=== PATIENT | female | born 1970 | race African-American/Black ===

== ENCOUNTER 2018-12-31 11:52 | Emergency (ER) | payer OTHER ==
[2018-12-31 12:19] VITALS: PULSE 88; TEMP 97.8; BMI 34.5
[2018-12-31] MEDS ORDERED: ACETAMINOPHEN 500 MG TABLET (FP) PO ONE (12:29)
[2018-12-31] MEDS ORDERED: ACETAMINOPHEN 500 MG TABLET (FP) ONE (12:31)
--- NOTE | 2018-12-31 12:37 | PDOC ---
History of Present Illness - General Chief Complaint: Injury Stated Complaint: RT FINGER INJURY Time Seen by Provider: 12/31/18 12:25 History Source: Patient - History of Present Illness Initial Comments: 12/31/18 12:37 HISTORY OF PRESENT ILLNESS: This is a 48-year-old woman past medical history of asthma presents to the emergency department for evaluation of right index and little finger pain status post trip on 12/30. Patient reports she walked into her house when her [place] Terrier Isa under her feet causing her to lose her balance to avoid stepping on the dog. Patient fell forward striking her fingers into the wall. Patient reports increased pain overnight. No recent travel or sick contacts. PAST MEDICAL HISTORY: see HPI SURGICAL HISTORY: Denies ALLERGIES: NSAIDs REVIEW OF SYSTEMS General/Constitutional: Denies fever or chills. Denies weakness, weight change. HEENT: Denies change in vision. Denies ear pain or discharge. Denies sore throat. Cardiovascular: Denies chest pain or shortness of breath. Respiratory: Denies cough, wheezing, or hemoptysis. Gastrointestinal: Denies nausea, vomiting, diarrhea or constipation. Denies rectal bleeding. Genitourinary: Denies dysuria, frequency, or change in urination. Musculoskeletal: see HPI Skin and breasts: Denies rash or easy bruising. Neurologic: Denies headache, vertigo, loss of consciousness, or loss of sensation. Psychiatric: Denies depression or anxiety. Endocrine: Denies increased thirst. Denies abnormal weight change. Hematologic/Lymphatic: Denies anemia, easy bleeding, or history of blood clots. Allergic/Immunologic: Denies hives or skin allergy. Denies latex allergy. PHYSICAL EXAM General Appearance: Well-appearing, appropriately dressed. No apparent distress , no intoxication. HEENT: EOMI, PERRLA, normal ENT inspection, normal voice, TMs normal, pharynx normal. No conjunctival pallor. No photophobia, scleral icterus. Neck: Supple. Trachea midline. No tenderness, rigidity, carotid bruit, stridor , lymphadenopathy, or thyromegaly. Respiratory/Chest: Lungs CTAB. No shortness of breath, chest tenderness, respiratory distress, accessory muscle use. No crackles, rales, rhonchi, stridor , wheezing, dullness Cardiovascular: RRR. S1, S2. No JVD, murmur, bradycardia, tachycardia. Vascular Pulses: Dorsalis-Pedis (R): 2+, Dorsalis-Pedis (L): 2+ Gastrointestinal/Abdominal: Normal bowel sounds. Abdomen soft, non-distended. No tenderness or rebound tenderness. No organomegaly, pulsatile mass, guarding, hernia, hepatomegaly, splenomegaly. Lymphatic: No adenopathy, tenderness. Musculoskeletal/Extremities: FROM of all extremities, normal capillary refill. Tenderness to palpation over the middle and distal phalanx of the right index finger and middle phalanx of right little finger. Swelling present over the PIP of the right index finger. Integumentary: Appropriate color, dry, warm. No cyanosis, erythema, jaundice or rash Neurologic: vault teller II-XII intact. Fully oriented, alert. Appropriate mood/affect. Motor strength 5/5. No appreciable EOM palsy, facial droop or sensory deficit. Past History - Past Medical History Allergies/Adverse Reactions: Allergies Allergy/AdvReac Type Severity Reaction Status Date / Time naproxen Allergy Severe Swelling Verified 12/31/18 12:27 ibuprofen [From Motrin] AdvReac "STOMACH Verified 12/31/18 12:27 UPSET" Home Medications: Ambulatory Orders NK [No Known Home Medication] 12/31/18 Anemia: No Asthma: Yes (NO RECENT ATTACK) Cancer: No Cardiac Disorders: No CVA: No COPD: No CHF: No Dementia: No Diabetes: No GI Disorders: No Disorders: No HTN: No Hypercholesterolemia: No Liver Disease: No Seizures: No Thyroid Disease: No - Surgical History Abdominal Surgery: No Appendectomy: No Cardiac Surgery: No Cholecystectomy: No Lung Surgery: Yes (RIGHT LUNG-HAD CHEST TUBE) Neurologic Surgery: No Orthopedic Surgery: Yes (LEFT KNEE ARTHROSCOPY) - Immunization History Immunization Up to Date: Yes - Suicide/Smoking/Psychosocial Hx Smoking History: Never smoked Hx Alcohol Use: No Drug/Substance Use Hx: No Substance Use Type: None Hx Substance Use Treatment: No *Physical Exam - Vital Signs Last Vital Signs Temp Pulse Resp BP Pulse Ox 97.8 F 88 18 125/8 L 94 L 12/31/18 12:17 12/31/18 12:17 12/31/18 12:17 12/31/18 12:17 12/31/18 12:17 ED Treatment Course - RADIOLOGY Radiology Studies Ordered: Category Date Time Status FINGER(S) RIGHT [RAD] Stat Radiology 12/31/18 12:29 Ordered Medical Decision Making - Medical Decision Making 12/31/18 12:50 A/P: 48-year-old woman with right index and little finger pain status post axial load injury to the distal ends of finger Full active range of motion against resistance all joints of the right hand Tenderness to palpation over the middle and distal phalanx of the right index finger and middle phalanx of the right little finger Appreciable swelling present over the PIP of the right index finger X-rays Tylenol 1 g orally now Reassess 12/31/18 13:11 X-rays as read by Dr. Wang: There is no sign of an acute fracture, subluxation or bony structure. [place] lytic changes are not seen. There is some loss of bone density. There is no sign of soft tissue air or foreign body. As there is no fracture sony tape the finger and r orthopedist for continued evaluation and follow-up as needed. I discussed the physical exam findings, ancillary test results and final diagnoses with the patient. I answered all of the patient's questions. The patient was satisfied with the care received and felt comfortable with the discharge plan and treatment plan. The patient will call their primary care physician within 24 hours to arrange follow-up and will return to the Emergency Department with any new, persistent or worsening symptoms. *DC/Admit/Observation/Transfer Diagnosis at time of Disposition: Finger pain, right Finger contusion Qualifiers: Encounter type: initial encounter Finger: index finger Damage to nail status: without damage Laterality: right Qualified Code(s): S60.021A - Contusion of right index finger without damage to nail, initial encounter - Discharge Dispostion Disposition: HOME Condition at time of disposition: Stable Decision to Admit order: No - Referrals Referrals: Flakito Worthy MD [Primary Care Provider] - Lee Watkins MD [Staff Physician] - - Patient Instructions Additional Instructions: Keep fingers taped together until evaluated by orthopedist. Take Tylenol as needed for pain. Follow manufacture's instructions for appropriate dosage. Apply ice to hands for no longer than 20 minutes at a time. Keep ice off hands for minimum of 20 minutes before reapplying. You have Been given an referral for an orthopedist. Please call to schedule an appointment if symptoms do not improve within 7 days. Return to emergency room for new or worsening symptoms. - Post Discharge Activity Forms/Work/School Notes: Back to Work
[2018-12-31 13:16] VITALS: BP 113/70
== END 2018-12-31 13:16 | disposition home or self-care (01) ==
LOC: JERFT 11:52
DX: S60.021A Contusion of right index finger without damage to nail, initial encounter (principal); W01.0XXA Fall on same level from slipping, tripping and stumbling without subsequent striking against object, initial encounter; Y93.K1 Activity, walking an animal; Y92.008 Other place in unspecified non-institutional (private) residence as the place of occurrence of the external cause
CPT/HCPCS: 73130-TC-RT-FY; 99281-25

== ENCOUNTER 2021-12-06 23:07 | Emergency (ER) | payer OTHER ==
[2021-12-06 23:21] VITALS: BMI 35.9
[2021-12-07] MEDS ORDERED: EPINEPHrine 1:1,000 1,000 MCG/ML ML IV ONE (00:50)
[2021-12-07] MEDS ORDERED: DEXAMETHASONE SOD PHOSPHATE 10 MG/1 ML VIAL IVPUSH ONE (00:50)
[2021-12-07] MEDS ORDERED: TRANEXAMIC ACID 1000 MG/10 ML VIAL IVPUSH ONE (00:51)
[2021-12-07] MEDS ORDERED: FAMOTIDINE 20 MG/50 ML IVPB 20 MG/50 ML MG IVPB ONE ×2 (00:51→00:57)
[2021-12-07] MEDS ORDERED: EPINEPHrine 1:1,000 1,000 MCG/ML ML SQ ONE (00:55)
[2021-12-07] MEDS ORDERED: EPINEPHrine 1:10,000 (P-F SYR) 1 MG/10 ML DISP.SYRIN ONE (00:56)
[2021-12-07] MEDS ORDERED: TRANEXAMIC ACID 1000 MG/10 ML VIAL ONE (00:58)
[2021-12-07] MEDS ORDERED: DEXAMETHASONE SOD PHOSPHATE 10 MG/1 ML VIAL ONE (01:02)
[2021-12-07] MEDS ORDERED: EPINEPHrine/PF 1 MG/1 ML (1:1,000) AMPULE ONE (01:04)
[2021-12-07] MEDS ORDERED: ACETAMINOPHEN 1000 MG/100 ML BAG IVPB ONE (01:38)
[2021-12-07] MEDS ORDERED: ACETAMINOPHEN INJECTION 100 ML IVPB ONE (01:48)
[2021-12-07 02:52] LABS: BASO % 0.1 % (0-2.0); HEMATOCRIT 36.6 % (32.4-45.2); HEMOGLOBIN 12.5 GM/dL (10.7-15.3); LYMPH % 16.5 % (8-40); MCH 28.4 pg (25.7-33.7); MCHC 34.2 g/dl (32.0-36.0); MEAN CELL VOLUME 82.9 fl (80-96); MEAN PLT VOLUME 7.2 fl (7.5-11.1); MONO % 7.9 % (3.8-10.2); NEUT % 75.5 % (42.8-82.8); PLATELET COUNT 415 10^3/uL (134-434); RBC 4.41 M/mm3 (3.60-5.2); RDW 15.3 % (11.6-15.6); WHITE BLOOD COUNT 14.6 K/mm3 (4.0-10.0)
[2021-12-07 03:07] LABS: INR 1.07 (0.83-1.09); PROTHROMBIN TIME (PATIENT) 12.3 SEC (9.7-13.0)
[2021-12-07 03:10] LABS: ACTIVATED PTT 28.1 SECONDS (25.2-36.5)
[2021-12-07 03:13] VITALS: PULSE 72
[2021-12-07 03:13] LABS: BLOOD UREA NITROGEN 26.2 mg/dL (7-18); CALCIUM 9.2 mg/dL (8.5-10.1)
[2021-12-07 03:16] LABS: CREATININE 0.8 mg/dL (0.55-1.3)
[2021-12-07 03:18] LABS: BILIRUBIN,TOTAL 0.2 mg/dL (0.2-1); TOT PROT 6.5 g/dl (6.4-8.2)
[2021-12-07 03:19] VITALS: BP 165/70; TEMP 98
[2021-12-09 00:06] LABS: SARS-CoV-2 NAA Not Detected (Not Detected)
== END 2021-12-07 03:24 | disposition short-term general hospital (02) ==
LOC: JER 23:07
PROC: 3E0333Z Introduction of Anti-inflammatory into Peripheral Vein, Percutaneous Approach (ICD-10-PCS; principal; 2021-12-06)
PROC: 3E033GC Introduction of Other Therapeutic Substance into Peripheral Vein, Percutaneous Approach (ICD-10-PCS; 2021-12-06)
PROC: 3E033GC Introduction of Other Therapeutic Substance into Peripheral Vein, Percutaneous Approach (ICD-10-PCS; 2021-12-06)
PROC: 3E033GC Introduction of Other Therapeutic Substance into Peripheral Vein, Percutaneous Approach (ICD-10-PCS; 2021-12-06)
PROC: 3E033GC Introduction of Other Therapeutic Substance into Peripheral Vein, Percutaneous Approach (ICD-10-PCS; 2021-12-06)
DX: T78.3XXA Angioneurotic edema, initial encounter (principal)
CPT/HCPCS: 36415; 80053; 84703; 85025; 85610; 85730; 86850; 86900; 86901; 99284-25; C9803-CS; J1100; U0003; U0005

== ENCOUNTER 2022-03-01 06:55 | Emergency (ER) | payer OTHER ==
[2022-03-01 07:18] VITALS: BP 105/64; PULSE 83; TEMP 98.3; BMI 34.0
[2022-03-01] MEDS ORDERED: SULFAMETHOXAZOLE/TRIMETHOPRIM 800MG/160MG D.S. TABLET PO ONE (08:33)
[2022-03-01] MEDS ORDERED: ACETAMINOPHEN 325 MG TABLET (FP) PO ONE (08:41)
[2022-03-01] MEDS ORDERED: SULFAMETHOXAZOLE/TRIMETHOPRIM 800MG/160MG D.S. TABLET ONE (08:45)
[2022-03-01] MEDS ORDERED: ACETAMINOPHEN 325 MG TABLET (FP) ONE (08:46)
[2022-03-01] MEDS ORDERED: BACITRACIN 15 GM TUBE TOPICAL OINTMENT ONE (10:46)
[2022-03-02] MEDS ORDERED: BACITRACIN 15 GM TUBE TOPICAL OINTMENT TP SCH (10:00)
== END 2022-03-01 11:40 | disposition home or self-care (01) ==
LOC: JER 06:55
DX: S41.101A Unspecified open wound of right upper arm, initial encounter (principal); M25.562 Pain in left knee; V89.2XXA Person injured in unspecified motor-vehicle accident, traffic, initial encounter
CPT/HCPCS: 0241U-QW; 73562-TC-LT-FY; 99284-25

== ENCOUNTER 2023-06-07 14:56 | Inpatient (IN) | payer OTHER ==
[2023-06-07] MEDS ORDERED: ALBUTEROL SO4 2.5/IPRATROPIUM 0.5 INH SOL 3 ML VIAL.NEB. NEB ONE (15:08)
[2023-06-07] MEDS ORDERED: methylPREDNISolone NA SUCC 125 MG/2 ML VIAL IVPB ONE (15:38)
[2023-06-07] MEDS ORDERED: ACETAMINOPHEN 1000 MG/100 ML BAG IVPB ONE (15:42)
[2023-06-07 15:53] LABS: BASO % 0.3 % (0-2.0); EOS % 1.9 % (0-4.5); HEMATOCRIT 31.9 % (32.4-45.2); HEMOGLOBIN 10.6 GM/dL (10.7-15.3); LYMPH % 12.6 % (8-40); MCH 25.8 pg (25.7-33.7); MCHC 33.1 g/dl (32.0-36.0); MEAN CELL VOLUME 77.7 fl (80-96); MEAN PLT VOLUME 7.3 fl (7.5-11.1); MONO % 6.2 % (3.8-10.2); PLATELET COUNT 422 10^3/uL (134-434); WHITE BLOOD COUNT 15.1 K/mm3 (4.0-10.0)
[2023-06-07 16:06] LABS: POTASSIUM 3.6 mmol/L (3.5-5.1)
[2023-06-07 16:09] LABS: CALCIUM 8.8 mg/dL (8.5-10.1)
[2023-06-07 16:10] LABS: ALBUMIN 2.8 g/dl (3.4-5.0); BLOOD UREA NITROGEN 8.8 mg/dL (7-18)
[2023-06-07] MEDS ORDERED: methylPREDNISolone NA SUCC 125 MG/2 ML VIAL ONE (16:11)
[2023-06-07] MEDS ORDERED: ACETAMINOPHEN INJECTION 100 ML IVPB ONE (16:11)
[2023-06-07 16:13] LABS: CREATININE 0.7 mg/dL (0.55-1.3)
[2023-06-07 16:14] LABS: BILIRUBIN,TOTAL 0.5 mg/dL (0.2-1); TOT PROT 6.7 g/dl (6.4-8.2)
[2023-06-07 16:16] LABS: VENOUS BASE EXCESS 1.4 mmol/L (-2-2); VENOUS PCO2 45.7 mmHg (38-52); VENOUS PH 7.389 (7.310-7.410)
[2023-06-07] MEDS: ALBUTEROL SO4 2.5/IPRATROPIUM 0.5 INH SOL 3 ML VIAL.NEB. NEB SCH ×3 (16:16→16:31)
[2023-06-07] MEDS ORDERED: SODIUM CHLORIDE 0.9% 500 ML INFUS.BAG IV ONE (16:20)
[2023-06-07] MEDS ORDERED: EPINEPHrine 1:1,000 0.3 MG/0.3 ML SYR IM ONE (16:31)
[2023-06-07] MEDS ORDERED: FAMOTIDINE 20 MG/50 ML IVPB 20 MG/50 ML MG IVPB ONE (16:34)
[2023-06-07] MEDS ORDERED: EPINEPHrine/PF 1 MG/1 ML (1:1,000) AMPULE ONE (16:38)
[2023-06-07] MEDS ORDERED: FAMOTIDINE 10 MG/ML VIAL IVPB ONE (16:47)
[2023-06-07] MEDS ORDERED: CEFTRIAXONE 1,000 MG in DEXTROSE 5%-WATER - 50 ML IVPB ONE (17:12)
[2023-06-07] MEDS ORDERED: AZITHROMYCIN IVPB 500 MG in DEXTROSE 5%-WATER - 250 ML IVPB ONE (17:12)
[2023-06-07] MEDS ORDERED: CEFTRIAXONE 1 GM/50 ML BAG ONE (17:20)
[2023-06-07] MEDS ORDERED: AZITHROMYCIN IVPB 500 MG/250 ML BAG IVPB ONE (17:20)
[2023-06-07] MEDS ORDERED: ALBUTEROL SO4 2.5/IPRATROPIUM 0.5 INH SOL 3 ML VIAL.NEB. NEB SCH (20:00)
[2023-06-07 22:18] VITALS: BMI 34.8
[2023-06-08] MEDS: methylPREDNISolone NA SUCC 40 MG/1 ML VIAL IVPUSH SCH ×2 (03:35→09:05)
[2023-06-08] MEDS: ACETAMINOPHEN 325 MG TABLET (FP) PO PRN ×2 (03:38→16:47)
[2023-06-08 08:47] LABS: BASO % 0.2 % (0-2.0); HEMATOCRIT 31.7 % (32.4-45.2); HEMOGLOBIN 10.8 GM/dL (10.7-15.3); LYMPH % 10.1 % (8-40); MCH 26.4 pg (25.7-33.7); MEAN CELL VOLUME 77.5 fl (80-96); MEAN PLT VOLUME 7.3 fl (7.5-11.1); MONO % 1.9 % (3.8-10.2); NEUT % 87.8 % (42.8-82.8); PLATELET COUNT 421 10^3/uL (134-434); RBC 4.09 M/mm3 (3.60-5.2); RDW 16.9 % (11.6-15.6); WHITE BLOOD COUNT 9.1 K/mm3 (4.0-10.0)
[2023-06-08 09:21] LABS: POTASSIUM 3.9 mmol/L (3.5-5.1)
[2023-06-08 09:23] LABS: ALBUMIN 2.6 g/dl (3.4-5.0); CALCIUM 8.7 mg/dL (8.5-10.1)
[2023-06-08 09:27] LABS: CREATININE 0.7 mg/dL (0.55-1.3)
[2023-06-08 09:28] LABS: BILIRUBIN,TOTAL 0.2 mg/dL (0.2-1); TOT PROT 6.8 g/dl (6.4-8.2)
[2023-06-08] MEDS ORDERED: AZITHROMYCIN IVPB 250 MG in DEXTROSE 5%-WATER - 250 ML IVPB SCH (10:00)
[2023-06-08] MEDS ORDERED: CEFTRIAXONE 1 GM in DEXTROSE 5%-WATER - 50 ML IVPB SCH (10:00)
[2023-06-08] MEDS: PIPERACILLIN/TAZOB 3.375 GM 3.375 GM in DEXTROSE 5%-WATER - 50 ML IVPB SCH ×2 (10:06→16:59)
[2023-06-08] MEDS: ENOXAPARIN NA (PORCINE) 40 MG/0.4 ML DISP.SYRIN SQ SCH (10:06)
[2023-06-08] MEDS: FAMOTIDINE 20 MG TABLET PO SCH (15:07)
[2023-06-08] MEDS: ALBUTEROL SO4 2.5/IPRATROPIUM 0.5 INH SOL 3 ML VIAL.NEB. NEB PRN ×2 (15:44→20:08)
[2023-06-09] MEDS: PIPERACILLIN/TAZOB 3.375 GM 3.375 GM in DEXTROSE 5%-WATER - 50 ML IVPB SCH ×3 (01:09→17:15)
[2023-06-09] MEDS: ALBUTEROL SO4 2.5/IPRATROPIUM 0.5 INH SOL 3 ML VIAL.NEB. NEB PRN ×2 (02:00→08:53)
[2023-06-09] MEDS: ACETAMINOPHEN 325 MG TABLET (FP) PO PRN ×2 (05:12→17:15)
[2023-06-09] MEDS: FAMOTIDINE 20 MG TABLET PO SCH (09:43)
[2023-06-09] MEDS: ENOXAPARIN NA (PORCINE) 40 MG/0.4 ML DISP.SYRIN SQ SCH (09:43)
[2023-06-09 09:54] LABS: BASO % 0.2 % (0-2.0); EOS % 0.3 % (0-4.5); HEMATOCRIT 28.5 % (32.4-45.2); LYMPH % 24.2 % (8-40); MCH 25.1 pg (25.7-33.7); MCHC 31.6 g/dl (32.0-36.0); MEAN CELL VOLUME 79.4 fl (80-96); MEAN PLT VOLUME 7.4 fl (7.5-11.1); MONO % 5.5 % (3.8-10.2); NEUT % 69.8 % (42.8-82.8); PLATELET COUNT 403 10^3/uL (134-434); RBC 3.59 M/mm3 (3.60-5.2); RDW 17.2 % (11.6-15.6)
[2023-06-09 10:15] LABS: CHLORIDE 107 mmol/L (98-107); POTASSIUM 3.4 mmol/L (3.5-5.1); SODIUM 140 mmol/L (136-145)
[2023-06-09 10:18] LABS: CALCIUM 8.3 mg/dL (8.5-10.1)
[2023-06-09 10:20] LABS: ALBUMIN 2.5 g/dl (3.4-5.0); ANION GAP 7 MMOL/L (8-16); BLOOD UREA NITROGEN 18.8 mg/dL (7-18); CO2 26 mmol/L (21-32); GLUCOSE,RANDOM 231 mg/dL (74-106)
[2023-06-09 10:23] LABS: CREATININE 0.9 mg/dL (0.55-1.3); SGOT/AST 11 U/L (15-37); SGPT/ALT 15 U/L (13-61)
[2023-06-09 10:25] LABS: BILIRUBIN,TOTAL < 0.1 mg/dL (0.2-1); TOT PROT 6.1 g/dl (6.4-8.2)
[2023-06-09 10:26] LABS: ALK PHOS 94 U/L (45-117)
[2023-06-09] MEDS ORDERED: ALBUTEROL SO4 2.5/IPRATROPIUM 0.5 INH SOL 3 ML VIAL.NEB. NEB SCH (12:10)
[2023-06-09] MEDS ORDERED: methylPREDNISolone NA SUCC 40 MG/1 ML VIAL IVPUSH SCH (12:15)
[2023-06-09] MEDS ORDERED: ALBUTEROL SO4 2.5/IPRATROPIUM 0.5 INH SOL 3 ML VIAL.NEB. NEB PRN ×2 (13:09→13:13)
[2023-06-09] MEDS ORDERED: POTASSIUM CHLORIDE TABS 20 MEQ TABLET.ER (FP) PO ONE (13:45)
[2023-06-09] MEDS: ALBUTEROL SO4 2.5/IPRATROPIUM 0.5 INH SOL 3 ML VIAL.NEB. NEB SCH ×2 (15:44→20:41)
[2023-06-09] MEDS ORDERED: traMADol HCL 50 MG TABLET PO ONE (21:15)
[2023-06-09] MEDS ORDERED: MELATONIN 5 MG TABLETS PO ONE (22:45)
[2023-06-10] MEDS: PIPERACILLIN/TAZOB 3.375 GM 3.375 GM in DEXTROSE 5%-WATER - 50 ML IVPB SCH ×3 (02:00→18:12)
[2023-06-10] MEDS: ACETAMINOPHEN 325 MG TABLET (FP) PO PRN (06:41)
[2023-06-10] MEDS: ALBUTEROL SO4 2.5/IPRATROPIUM 0.5 INH SOL 3 ML VIAL.NEB. NEB SCH ×5 (08:05→21:03)
[2023-06-10] MEDS: ENOXAPARIN NA (PORCINE) 40 MG/0.4 ML DISP.SYRIN SQ SCH (10:33)
[2023-06-10] MEDS: FAMOTIDINE 20 MG TABLET PO SCH (10:34)
[2023-06-10] MEDS: guaiFENesin/CODEINE 5 ML UNIT-DOSE CUPS PO PRN (20:05)
[2023-06-10 21:39] VITALS: RESP 18
[2023-06-11] MEDS: ZOLPIDEM TARTRATE 5 MG TABLET PO PRN (01:28)
[2023-06-11] MEDS: PIPERACILLIN/TAZOB 3.375 GM 3.375 GM in DEXTROSE 5%-WATER - 50 ML IVPB SCH ×3 (01:32→18:24)
[2023-06-11] MEDS: ALBUTEROL SO4 2.5/IPRATROPIUM 0.5 INH SOL 3 ML VIAL.NEB. NEB SCH ×4 (07:15→19:30)
[2023-06-11] MEDS: FAMOTIDINE 20 MG TABLET PO SCH (10:04)
[2023-06-11] MEDS: guaiFENesin/CODEINE 5 ML UNIT-DOSE CUPS PO PRN ×2 (10:06→20:13)
[2023-06-11] MEDS: ENOXAPARIN NA (PORCINE) 40 MG/0.4 ML DISP.SYRIN SQ SCH (10:06)
[2023-06-11] MEDS: IBUPROFEN 600 MG TABLET (FP) PO PRN (18:43)
[2023-06-12] MEDS: ZOLPIDEM TARTRATE 5 MG TABLET PO PRN (01:06)
[2023-06-12] MEDS: PIPERACILLIN/TAZOB 3.375 GM 3.375 GM in DEXTROSE 5%-WATER - 50 ML IVPB SCH ×3 (01:06→18:09)
[2023-06-12] MEDS: guaiFENesin/CODEINE 5 ML UNIT-DOSE CUPS PO PRN ×2 (06:48→16:52)
[2023-06-12] MEDS: ALBUTEROL SO4 2.5/IPRATROPIUM 0.5 INH SOL 3 ML VIAL.NEB. NEB SCH ×4 (07:48→19:14)
[2023-06-12] MEDS: IBUPROFEN 600 MG TABLET (FP) PO PRN ×2 (09:07→21:49)
[2023-06-12] MEDS: FAMOTIDINE 20 MG TABLET PO SCH (09:07)
[2023-06-12] MEDS: ENOXAPARIN NA (PORCINE) 40 MG/0.4 ML DISP.SYRIN SQ SCH (09:08)
[2023-06-13] MEDS: guaiFENesin/CODEINE 5 ML UNIT-DOSE CUPS PO PRN
[2023-06-13] MEDS: PIPERACILLIN/TAZOB 3.375 GM 3.375 GM in DEXTROSE 5%-WATER - 50 ML IVPB SCH ×2 (01:01→09:43)
[2023-06-13] MEDS: ZOLPIDEM TARTRATE 5 MG TABLET PO PRN (01:01)
[2023-06-13] MEDS: IBUPROFEN 600 MG TABLET (FP) PO PRN (05:30)
[2023-06-13 06:08] VITALS: BP 119/75; PULSE 77; TEMP 97.5
[2023-06-13] MEDS: ALBUTEROL SO4 2.5/IPRATROPIUM 0.5 INH SOL 3 ML VIAL.NEB. NEB SCH ×2 (07:55→11:37)
[2023-06-13 08:34] LABS: POTASSIUM 4.2 mmol/L (3.5-5.1)
[2023-06-13 08:38] LABS: ALBUMIN 2.9 g/dl (3.4-5.0); BLOOD UREA NITROGEN 10.4 mg/dL (7-18)
[2023-06-13 08:39] LABS: BASO % 0.3 % (0-2.0); EOS % 4.5 % (0-4.5); HEMATOCRIT 34.9 % (32.4-45.2); HEMOGLOBIN 11.2 GM/dL (10.7-15.3); LYMPH % 21.3 % (8-40); MCH 25.2 pg (25.7-33.7); MCHC 32.1 g/dl (32.0-36.0); MEAN CELL VOLUME 78.6 fl (80-96); MONO % 4.7 % (3.8-10.2); NEUT % 69.2 % (42.8-82.8); PLATELET COUNT 576 10^3/uL (134-434); RBC 4.44 M/mm3 (3.60-5.2); RDW 16.8 % (11.6-15.6); WHITE BLOOD COUNT 10.7 K/mm3 (4.0-10.0)
[2023-06-13 08:41] LABS: CREATININE 0.8 mg/dL (0.55-1.3)
[2023-06-13 08:42] LABS: BILIRUBIN,TOTAL 0.4 mg/dL (0.2-1); TOT PROT 6.8 g/dl (6.4-8.2)
[2023-06-13] MEDS: FAMOTIDINE 20 MG TABLET PO SCH (09:44)
[2023-06-13] MEDS: ENOXAPARIN NA (PORCINE) 40 MG/0.4 ML DISP.SYRIN SQ SCH (09:44)
== END 2023-06-13 13:45 | disposition home health service (06) | DRG 140 ==
LOC: JER 14:56 → JERBED 17:16 → J7W 21:37
PROVIDERS: ADMIT Internal Medicine; ATTEND Internal Medicine
DX: J44.1 Chronic obstructive pulmonary disease with (acute) exacerbation (principal); J18.9 Pneumonia, unspecified organism; J44.0 Chronic obstructive pulmonary disease with (acute) lower respiratory infection; J90 Pleural effusion, not elsewhere classified; D86.9 Sarcoidosis, unspecified; J45.41 Moderate persistent asthma with (acute) exacerbation; E66.9 Obesity, unspecified; Z68.34 Body mass index [BMI] 34.0-34.9, adult
CPT/HCPCS: 0241U-QW; 36415; 71045-TC-FY; 71250-TC; 80053; 82803; 83605; 84484; 85025; 87040; 87077; 87081; 93005; 93010; 94640; 99285-25; J0171

== ENCOUNTER 2024-06-11 16:29 | Observation (INO) | payer OTHER ==
[2024-06-11 18:33] LABS: BASO % 0.6 % (0-2.0); EOS % 3.4 % (0-4.5); HEMATOCRIT 30.7 % (32.4-45.2); HEMOGLOBIN 9.9 GM/dL (10.7-15.3); LYMPH % 17.8 % (8-40); MCH 25.8 pg (25.7-33.7); MCHC 32.2 g/dl (32.0-36.0); MONO % 4.8 % (3.8-10.2); NEUT % 73.4 % (42.8-82.8); PLATELET COUNT 269 10^3/uL (134-434); RBC 3.84 M/mm3 (3.60-5.2); RDW 17.5 % (11.6-15.6); WHITE BLOOD COUNT 8.1 K/mm3 (4.0-10.0)
[2024-06-11 18:58] LABS: CALCIUM 8.7 mg/dL (8.5-10.1)
[2024-06-11 18:59] LABS: BLOOD UREA NITROGEN 15.7 mg/dL (7-18)
[2024-06-11 19:02] LABS: CREATININE 0.6 mg/dL (0.55-1.3)
[2024-06-11 19:04] LABS: BILIRUBIN,TOTAL 0.2 mg/dL (0.2-1); TOT PROT 5.9 g/dl (6.4-8.2)
[2024-06-12] MEDS ORDERED: ALBUTEROL SO4 HFA INHALER IH ONE (10:01)
[2024-06-12] MEDS ORDERED: ACETAMINOPHEN 500 MG TABLET (FP) ONE (10:02)
[2024-06-12] MEDS: ACETAMINOPHEN 500 MG TABLET (FP) PO ONE (10:06)
[2024-06-12] MEDS: ALBUTEROL SO4 HFA INHALER IH ONE (10:08)
[2024-06-12 14:49] VITALS: BMI 28.5
[2024-06-12] MEDS: KETOROLAC TROMETHAMINE 30 MG/1 ML VIAL IVPUSH PRN (16:48)
[2024-06-12] MEDS ORDERED: ALBUTEROL SO4 0.083% IH SOL 2.5 MG/3 ML VIAL.NEB. NEB ONE (18:51)
[2024-06-12] MEDS: ALBUTEROL SO4 0.083% IH SOL 2.5 MG/3 ML VIAL.NEB. NEB PRN (19:20)
[2024-06-12] MEDS: ACETAMINOPHEN 325 MG TABLET (FP) PO PRN (20:39)
[2024-06-13 07:04] VITALS: RESP 18
[2024-06-13] MEDS: FAMOTIDINE 20 MG TABLET PO SCH (09:44)
[2024-06-13] MEDS: ZOLPIDEM TARTRATE 5 MG TABLET PO PRN (21:59)
[2024-06-13] MEDS: clonazePAM 0.5 MG TABLET PO SCH (21:59)
[2024-06-14] MEDS: ESCITALOPRAM OXALATE 10 MG TABLET PO SCH (10:17)
[2024-06-15 14:36] VITALS: BP 120/74; PULSE 95; TEMP 97.8
== END 2024-06-15 15:42 | disposition home or self-care (01) ==
LOC: JER 16:29 → JERBED 06-12 12:32 → J8W 06-12 13:12
PROVIDERS: ADMIT Internal Medicine; ATTEND Internal Medicine
PROC: 3E0F7GC Introduction of Other Therapeutic Substance into Respiratory Tract, Via Natural or Artificial Opening (ICD-10-PCS; principal; 2024-06-12)
PROC: 3E0333Z Introduction of Anti-inflammatory into Peripheral Vein, Percutaneous Approach (ICD-10-PCS; 2024-06-12)
DX: J45.41 Moderate persistent asthma with (acute) exacerbation (principal); S70.11XA Contusion of right thigh, initial encounter; D86.9 Sarcoidosis, unspecified; Y04.2XXA Assault by strike against or bumped into by another person, initial encounter; Y07.030 Male partner, current, perpetrator of maltreatment and neglect; Y92.89 Other specified places as the place of occurrence of the external cause; X58.XXXA Exposure to other specified factors, initial encounter; Z88.8 Allergy status to other drugs, medicaments and biological substances
CPT/HCPCS: 0241U-QW; 36415; 71045-TC-FY; 72128-TC; 72131-TC; 73706-TC-RT; 80053; 84484; 84703; 85025; 93005; 93010; 94640; 96374; 97116-GP; 97161-GP; 99285-25; G0378; Q9967

== ENCOUNTER 2024-06-30 11:16 | Emergency (ER) | payer OTHER ==
[2024-06-30 11:21] VITALS: RESP 18; BMI 30.8
[2024-06-30] MEDS ORDERED: KETOROLAC TROMETHAMINE 30 MG/1 ML VIAL ONE (12:46)
[2024-06-30] MEDS: SODIUM CHLORIDE 0.9% 500 ML INFUS.BAG IV ONE (12:57)
[2024-06-30] MEDS: KETOROLAC TROMETHAMINE 15 MG/ML VIAL IVPUSH ONE (12:57)
[2024-06-30] MEDS: KETOROLAC TROMETHAMINE 30 MG/1 ML VIAL IM ONE (12:58)
[2024-06-30 13:13] LABS: BASO % 0.4 % (0-2.0); EOS % 1.6 % (0-4.5); HEMATOCRIT 30.4 % (32.4-45.2); HEMOGLOBIN 9.9 GM/dL (10.7-15.3); LYMPH % 17.6 % (8-40); MCH 25.3 pg (25.7-33.7); MCHC 32.4 g/dl (32.0-36.0); MEAN CELL VOLUME 78.1 fl (80-96); MEAN PLT VOLUME 6.5 fl (7.5-11.1); MONO % 4.5 % (3.8-10.2); NEUT % 75.9 % (42.8-82.8); PLATELET COUNT 578 10^3/uL (134-434); RBC 3.89 M/mm3 (3.60-5.2); RDW 16.7 % (11.6-15.6); WHITE BLOOD COUNT 7.9 K/mm3 (4.0-10.0)
[2024-06-30 13:46] LABS: POTASSIUM 4.1 mmol/L (3.5-5.1)
[2024-06-30 13:48] LABS: CALCIUM 9.2 mg/dL (8.5-10.1)
[2024-06-30 13:49] LABS: ALBUMIN 2.6 g/dl (3.4-5.0); BLOOD UREA NITROGEN 22.9 mg/dL (7-18)
[2024-06-30 13:52] LABS: CREATININE 0.8 mg/dL (0.55-1.3)
[2024-06-30 13:53] LABS: BILIRUBIN,TOTAL 0.2 mg/dL (0.2-1); TOT PROT 6.5 g/dl (6.4-8.2)
[2024-06-30 14:45] VITALS: BP 133/44; PULSE 79; TEMP 96.9
[2024-06-30 14:48] LABS: HIV INTERPRETATION NEGATIVE (NEGATIVE)
== END 2024-06-30 15:30 | disposition home or self-care (01) ==
LOC: JER 11:16
PROC: 3E0333Z Introduction of Anti-inflammatory into Peripheral Vein, Percutaneous Approach (ICD-10-PCS; principal; 2024-06-30)
DX: M25.562 Pain in left knee (principal); M79.652 Pain in left thigh; R10.2 Pelvic and perineal pain; Y04.8XXA Assault by other bodily force, initial encounter
CPT/HCPCS: 36415; 72170-TC-FY; 73502-TC-LT-FY; 73562-TC-LT-FY; 80053; 85025; 86803; 87389; 99284-25

== ENCOUNTER 2025-04-07 10:27 | Emergency (ER) | payer OTHER ==
[2025-04-07 10:39] VITALS: BP 97/64; PULSE 82; RESP 18; TEMP 97.9; BMI 28.3
[2025-04-07] MEDS ORDERED: ACETAMINOPHEN 500 MG TABLET (FP) ONE (10:54)
[2025-04-07] MEDS ORDERED: METHOCARBAMOL 500 MG TABLET ONE (10:54)
[2025-04-07] MEDS ORDERED: KETOROLAC TROMETHAMINE 30 MG/1 ML VIAL ONE (10:54)
[2025-04-07] MEDS: KETOROLAC TROMETHAMINE 30 MG/1 ML VIAL IM ONE (11:02)
[2025-04-07] MEDS: METHOCARBAMOL 500 MG TABLET PO ONE (11:03)
[2025-04-07] MEDS: ACETAMINOPHEN 500 MG TABLET (FP) PO ONE (11:03)
== END 2025-04-07 13:26 | disposition home or self-care (01) ==
LOC: JER 10:27
PROC: 3E0233Z Introduction of Anti-inflammatory into Muscle, Percutaneous Approach (ICD-10-PCS; principal; 2025-04-07)
DX: M06.9 Rheumatoid arthritis, unspecified (principal); M25.562 Pain in left knee; M79.642 Pain in left hand; M79.89 Other specified soft tissue disorders; W06.XXXA Fall from bed, initial encounter
CPT/HCPCS: 73110-TC-LT-FY; 73130-TC-LT-FY; 73562-TC-LT-FY; 99284-25

== ENCOUNTER 2025-04-19 21:26 | Emergency (ER) | payer OTHER ==
[2025-04-19 22:01] VITALS: BMI 31.1
[2025-04-19] MEDS ORDERED: ACETAMINOPHEN INJECTION 100 ML ONE (22:32)
[2025-04-19] MEDS: ACETAMINOPHEN 1000 MG/100 ML BAG IVPB ONE (22:56)
[2025-04-19 23:00] LABS: ABSOLUTE IMMATURE GRANULOCYTES 0.01 x10^3/uL (0.0-0.031); BASOPHILS # 0.02 x10^3/uL (0.01-0.08); EOSINOPHIL % 4.0 % (0.7-5.8); EOSINOPHILS # 0.25 x10^3/uL (0.04-0.36); MCHC 31.4 g/dl (32.2-35.5); MEAN CELL VOLUME 86.7 fl (79.4-94.8); MEAN PLT VOLUME 8.8 fl (9.4-12.3); MONOCYTE # 0.33 x10^3/uL (0.24-0.86); MONOCYTE % 5.2 % (4.7-12.5); RDW 12.5 % (12.3-16.6)
[2025-04-19 23:14] LABS: GLUCOSE,RANDOM 100 mg/dL (74-106)
[2025-04-19 23:15] LABS: TOT PROT 6.6 g/dl (6.4-8.2)
[2025-04-19 23:16] LABS: CO2 25 mmol/L (21-32)
[2025-04-19 23:17] LABS: ALK PHOS 79 U/L (40-150)
[2025-04-19 23:20] LABS: CREATININE 0.48 mg/dL (0.55-1.3); SGOT/AST 16 U/L (5-34); SGPT/ALT < 6 U/L (0-55)
[2025-04-19 23:42] LABS: HIV INTERPRETATION NEGATIVE (NEGATIVE)
[2025-04-19] MEDS ORDERED: KETOROLAC TROMETHAMINE 30 MG/1 ML VIAL ONE (23:46)
[2025-04-20] MEDS: KETOROLAC TROMETHAMINE 30 MG/1 ML VIAL IM ONE (00:08)
[2025-04-20 02:01] LABS: HCV DIAGNOSTIC IN-HOUSE W/RFLX NON-REACTIVE (NONREACTIVE)
[2025-04-20 02:28] LABS: URINE APPEARANCE CLEAR; URINE BILIRUBIN NEGATIVE (NEGATIVE); URINE COLOR YELLOW; URINE GLUCOSE (UA) NEGATIVE (NEGATIVE); URINE KETONE NEGATIVE (NEGATIVE)
[2025-04-20 02:29] LABS: URINE LEUK ESTERASE NEGATIVE (NEGATIVE); URINE NITRITE NEGATIVE (NEGATIVE); URINE PROTEIN NEGATIVE (NEGATIVE); URINE UROBILINOGEN 0.2 mg/dL (0.2-1.0)
[2025-04-20] MEDS ORDERED: METHOCARBAMOL 500 MG TABLET ONE (04:29)
[2025-04-20] MEDS: METHOCARBAMOL 500 MG TABLET PO ONE (04:34)
[2025-04-20] MEDS ORDERED: KETOROLAC TROMETHAMINE 15 MG/ML VIAL ONE (07:51)
[2025-04-20] MEDS: KETOROLAC TROMETHAMINE 30 MG/1 ML VIAL IVPUSH ONE (08:11)
[2025-04-20 08:26] VITALS: BP 119/72; PULSE 75; RESP 18; TEMP 97.7
== END 2025-04-20 10:08 | disposition home or self-care (01) ==
LOC: JER 21:26
PROC: 3E033NZ Introduction of Analgesics, Hypnotics, Sedatives into Peripheral Vein, Percutaneous Approach (ICD-10-PCS; principal; 2025-04-19)
PROC: 3E0233Z Introduction of Anti-inflammatory into Muscle, Percutaneous Approach (ICD-10-PCS; 2025-04-19)
PROC: 3E0333Z Introduction of Anti-inflammatory into Peripheral Vein, Percutaneous Approach (ICD-10-PCS; 2025-04-20)
DX: R10.2 Pelvic and perineal pain (principal); G89.29 Other chronic pain
CPT/HCPCS: 36415; 74177-TC; 80053; 81003; 84703; 85025; 86803; 87086; 87389; 99285-25

== ENCOUNTER 2025-06-19 12:24 | Emergency (ER) | payer OTHER ==
[2025-06-19 12:49] VITALS: BMI 29.6
[2025-06-19] MEDS ORDERED: ACETAMINOPHEN 500 MG TABLET (FP) ONE (13:30)
[2025-06-19] MEDS: ACETAMINOPHEN 500 MG TABLET (FP) PO ONE (13:34)
[2025-06-19 16:00] VITALS: BP 105/68; PULSE 69; RESP 17; TEMP 97.9
[2025-06-19] MEDS ORDERED: KETOROLAC TROMETHAMINE 30 MG/1 ML VIAL ONE (16:59)
[2025-06-19] MEDS: KETOROLAC TROMETHAMINE 30 MG/1 ML VIAL IM ONE (17:15)
== END 2025-06-19 18:10 | disposition home or self-care (01) ==
LOC: JER 12:24
PROC: 3E0233Z Introduction of Anti-inflammatory into Muscle, Percutaneous Approach (ICD-10-PCS; principal; 2025-06-19)
DX: T74.11XA Adult physical abuse, confirmed, initial encounter (principal); R22.0 Localized swelling, mass and lump, head; Y07.030 Male partner, current, perpetrator of maltreatment and neglect
CPT/HCPCS: 70450-TC; 71111-TC-FY; 72125-TC; 74176-TC; 96372; 99285-25